=== PATIENT | male | born 1960 | race Caucasian/White ===

== ENCOUNTER 2022-01-30 05:40 | Outpatient (CLI) | payer BC ==
[~2022-01-30] VITALS: Ht 193 cm; Wt 99.8 kg
== END 2022-01-31 09:38 ==
LOC: PREOP 05:40
PROVIDERS: ATTEND Surgery
DX: Z01.818 Encounter for other preprocedural examination (principal); Z12.11 Encounter for screening for malignant neoplasm of colon

== ENCOUNTER 2022-02-06 10:11 | Day surgery (SDC) | payer BC ==
[~2022-02-06] VITALS: Ht 190.5 cm; Wt 99.8 kg
[2022-02-06] MEDS ORDERED: LACTATED RINGERS 1,000 ML IV STA (10:14)
[2022-02-06] MEDS ORDERED: PROPOFOL INJECTION 50 ML IV ONE (10:20)
[2022-02-06 10:25] VITALS: BP 137/92
--- NOTE | 2022-02-06 10:26 | Progress Note-Pre Operative ---
Pre-Operative Progress Note Date of Available H&P: Jan 08, 2022 Date H&P Reviewed: Feb 06, 2022 Time H&P Reviewed: 10:26 History & Physical: H&P Reviewed Pre-Operative Diagnosis: Screening Colonoscopy TIAGO EDMOND DO Feb 06, 2022 10:26
[2022-02-06] MEDS ORDERED: ASHW300C PO (10:28)
--- NOTE | 2022-02-06 11:07 | Discharge Inst-Simple/Standard ---
Discharge Inst-Standard Patient Instructions/Follow Up Plan of Care/Instructions/FU: Please follow up in [address] Nick in outpatient clinic Activity as Tolerated: Yes Discharge Diet: Regular Diet TIAGO NICK DO Feb 06, 2022 11:07
[2022-02-06 11:10] VITALS: BP 116/71
[2022-02-06 11:15] VITALS: BP 115/77
[2022-02-06 11:31] VITALS: BP 115/77
--- NOTE | 2022-02-06 12:14 | Anesthesia-General Post-Op ---
MAC Patient Condition Mental Status/LOC: Same as Preop Cardiovascular: Satisfactory Nausea/Vomiting: Absent Respiratory: Satisfactory Pain: Controlled Complications: Absent Post Op Complications Complications None Follow Up Care/Instructions Patient Instructions None needed. Anesthesiology Discharge Order Discharge Order Patient is doing well, no complaints, stable vital signs, no apparent adverse anesthesia problems. No complications reported per nursing. HUGH PONCE CRNA Feb 06, 2022 12:14
--- NOTE | 2022-02-06 19:40 | OPERATIVE REPORT ---
DATE OF SERVICE: 02/06/2022 PREOPERATIVE DIAGNOSIS: Screening colonoscopy. POSTOPERATIVE DIAGNOSIS: Colon polyps. PROCEDURE: Colonoscopy with snare polypectomy x2. SURGEON: Tiago Nick DO. ANESTHESIA: Per FARMWORK[employer]. ESTIMATED BLOOD LOSS: None. COMPLICATIONS: None. INDICATIONS: The patient is a 62-year-old male needing screening colonoscopy. He understands risks and benefits of procedure and wished to proceed. Consent was signed in chart. DESCRIPTION OF PROCEDURE: The patient was taken to the endoscopy suite, placed in left lateral recumbent position. A timeout was performed. Digital rectal exam was performed. No palpable polyps, masses or ulcerations. The scope was inserted into the rectum and advanced all the way to the cecum with minimal difficulty. Prep was adequate with irrigation and suction. Scope was then slowly retracted back. No polyps, masses, ulcerations in the cecum, ascending colon, transverse colon, 2 polyps were present, which snare polypectomies were performed. Scope was then continuously retracted back. No polyps, masses or ulcerations in the remainder of the transverse, descending, sigmoid colon within the rectum. Scope was retroflexed noting no other pathology. Scope was returned to its normal position slowly withdrawn until completely removed. The patient tolerated the procedure well without complication and was taken to recovery room in stable condition. RECOMMENDATIONS: The patient will follow up in 2 weeks to discuss pathology results. Repeat colonoscopy in 5 years unless changes before that, which would be reevaluated at that time. Job ID: [id number] DocumentID: [id number] Dictated Date: 02/06/2022 11:06:50 Stockkeeper Date: 02/06/2022 19:39:00 Dictated By: TIAGO NICK DO
== END 2022-02-06 11:40 | disposition home or self-care (01) ==
LOC: ENDO 10:11
PROVIDERS: ATTEND Surgery
DX: Z12.11 Encounter for screening for malignant neoplasm of colon (principal); D12.3 Benign neoplasm of transverse colon
CPT/HCPCS: 88305